=== PATIENT | female | born 1995 | race Two or more races ===

== ENCOUNTER 2022-10-02 13:45 | Emergency (ER) | payer MEDICAID ==
[~2022-10-02] VITALS: Ht 154.9 cm; Wt 48.0 kg
[2022-10-02 14:57] LABS: Urine Bacteria FEW /hpf (None Seen); Urine Blood 2+ /uL (Negative); Urine Specific Gravity 1.022 (1.001-1.035); Urine WBC 1 /hpf (0 - 5)
[2022-10-02 16:18] VITALS: BP 118/81
[2022-10-02] MEDS ORDERED: TUBERCULIN PPD 5 UNIT/0.1 ML ID ONE (16:30)
[2022-10-02] MEDS ORDERED: HYD1TP TOP ×2 (16:33→16:34)
[2022-10-02] MEDS ORDERED: PROM1SOL4 PO (16:34)
== END 2022-10-02 17:20 | disposition home or self-care (01) ==
LOC: ER 13:47
DX: J06.9 Acute upper respiratory infection, unspecified (principal); R21 Rash and other nonspecific skin eruption; R06.02 Shortness of breath; Z32.02 Encounter for pregnancy test, result negative; Z20.822 Contact with and (suspected) exposure to COVID-19; Z88.6 Allergy status to analgesic agent
CPT/HCPCS: 36415; 71045; 81001; 81025; 87426; 87804